=== PATIENT | male | born 1980 | race Caucasian/White ===

== ENCOUNTER 2019-08-04 16:25 | Emergency (ER) | payer SELFPAY ==
--- NOTE | 2019-08-04 18:35 | EDM.PDOC ---
ED HPI GENERAL MEDICAL PROBLEM - General Chief Complaint: Skin Complaint Stated Complaint: RIGHT INDEX FINGER INFECTION Time Seen by Provider: 08/04/19 18:20 Source of Information: Reports: Patient History Limitations: Reports: No Limitations - History of Present Illness INITIAL COMMENTS - FREE TEXT/NARRATIVE: HISTORY AND PHYSICAL: History of present illness: Patient is a 39-year-old male who presents to the emergency room with complaints of right index "finger infection". He states several days ago he noticed some localized swelling at the PIP joint of the right index finger which has progressively gotten larger in size and feels fluctuant. Area is tender to touch and he has pain with extending and flexing of the hand. Patient denies any fever, chills, headache, change in vision, syncope or near syncope. Denies any chest pain, back pain, shortness of breath or cough. Denies any abdominal pain, nausea, vomiting, diarrhea, constipation or dysuria. Has not noted any blood in urine or stool. Patient has been eating and drinking appropriately. Review of systems: As per history of present illness and below otherwise all systems reviewed and negative. Past medical history: As per history of present illness and as reviewed below otherwise noncontributory. Surgical history: As per history of present illness and as reviewed below otherwise noncontributory. Social history: See social history for further information Family history: As per history of present illness and as reviewed below otherwise noncontributory. Physical exam: General: Well-developed and well-nourished 39-year-old male. Alert and oriented. Nontoxic-appearing and in no acute distress. HEENT: Atraumatic, normocephalic, pupils equal and reactive bilaterally, negative for conjunctival pallor or scleral icterus, mucous membranes moist, TMs normal bilaterally, throat clear, neck supple, nontender, trachea midline. No drooling or trismus noted. No meningeal signs. No hot potato voice noted. Lungs: Clear to auscultation, breath sounds equal bilaterally, chest nontender. Heart: S1S2, regular rate and rhythm without overt murmur Abdomen: Soft, nondistended, nontender. Negative for masses or hepatosplenomegaly. Negative for costovertebral tenderness. Skin: Localized soft tissue swelling noted to the anterior MIP joint of the right index finger. Area is fluctuant and tender to palpation. Remaining skin is intact, warm, dry. No lesions or rashes noted. Extremities: Atraumatic, moves all extremities per self without difficulty or deficits, see SKIN for details. Neurovascular unremarkable. Neuro: Awake, alert, oriented. Cranial nerves II through XII unremarkable. Cerebellum unremarkable. Motor and sensory unremarkable throughout. Exam nonfocal. Notes: (Please note that there was a mistaken triage/initial vital signs that the triage nurse put on patients chart. See nursing note for details.) Patient's initial vital signs are within normal limits. Patient does have soft tissue swelling at the MIP joint of the right index finger which is concerning for possible infected joint. X-ray shows diffuse soft tissue swelling. No findings of osteomyelitis. No bony abnormalities are noted. Patient does have history of gout although this appears semi-fluctuant like it may need drainage. I did talk with Dr. English, orthopedic on-call and he would prefer this patient follow-up with a hand surgeon. Dr. Quiñones, hand surgeon at [facility] in [place], was consulted. We discussed gout versus infected joint. Patient does not appear toxic, and he does not need overnight admission. This conversation was shared with the patient. I will start him on antibiotics and give him pain medication. Patient is to call Dr. Quiñones office at 8 AM in the morning to set up this follow-up appointment, which Dr. Quiñones states he will see him tomorrow morning or late afternoon. We did discuss signs and symptoms that would prompt the patient to return to the emergency room. Supportive care measures were reviewed and discussed. Voices understanding and is agreeable to plan of care. Denies any further questions or concerns at this time. Diagnostics: Finger X-ray, CBC, CMP, BC x 2 Therapeutics: None Prescription: Madison, Bactrim Impression: Joint infection vs gout Plan: 1. Please call Dr Quiñones office tomorrow morning at 8am. They will give you an appointment time for follow up that day. 2. Take the medications as prescribed. 3. Return to the ED as needed and as discussed Definitive disposition and diagnosis as appropriate pending reevaluation and review of above. Right Finger-Index Pain Score (Numeric/FACES): 8 - Related Data Allergies Allergy/AdvReac Type Severity Reaction Status Date / Time No Known Allergies Allergy Verified 08/04/19 17:15 Home Meds: Home Meds Acetaminophen/HYDROcodone [Madison 325-5 MG] 1 dose PO Q4H #20 tablet 08/04/19 [Rx ] Sulfamethoxazole/Trimethoprim [Bactrim Ds Tablet] 1 each PO BID 10 Days #20 tablet 08/04/19 [Rx] Past Medical History - Infectious Disease History Infectious Disease History: Reports: None Social & Family History - Family History Family Medical History: Noncontributory - Tobacco Use Smoking Status *Q: Never Smoker Used Tobacco, but Quit: Yes Month/Year Tobacco Last Used: 0000 - Caffeine Use Caffeine Use: Reports: None, Coffee, Energy Drinks, Soda - Recreational Drug Use Recreational Drug Use: No ED ROS GENERAL - Review of Systems Review Of Systems: Comprehensive ROS is negative, except as noted in HPI. ED EXAM, SKIN/RASH Exam: See Below (See dictation) Course - Vital Signs Last Recorded V/S: Last Vital Signs Temp 97.2 F 08/04/19 20:00 Pulse 88 08/04/19 20:00 Resp 18 08/04/19 20:00 BP 110/70 08/04/19 20:00 Pulse Ox 98 08/04/19 20:00 - Orders/Labs/Meds Orders: Active Orders 24 hr Category Date Time Status CULTURE BLOOD [BC] Stat Lab 08/04/19 18:56 Received CULTURE BLOOD [BC] Stat Lab 08/04/19 19:08 Received Blood Culture x2 Reflex Set [OM.PC] Stat Oth 08/04/19 18:35 Ordered Labs: Laboratory Tests 08/04/19 08/04/19 Range/Units 18:56 18:56 WBC 10.47 (4.0-11.0) K/uL RBC 4.28 L (4.50-5.90) M/uL Hgb 12.6 L (13.0-17.0) g/dL Hct 36.4 L (38.0-50.0) % MCV 85.0 (80.0-98.0) fL MCH 29.4 (27.0-32.0) pg MCHC 34.6 (31.0-37.0) g/dL RDW Std Deviation 38.5 (28.0-62.0) fl RDW Coeff of Indu 13 (11.0-15.0) % Plt Count 419 H (150-400) K/uL MPV 9.60 (7.40-12.00) fL Neut % (Auto) 58.7 (48.0-80.0) % Lymph % (Auto) 31.2 (16.0-40.0) % Stanley % (Auto) 7.5 (0.0-15.0) % Eos % (Auto) 2.4 (0.0-7.0) % Baso % (Auto) 0.2 (0.0-1.5) % Neut # (Auto) 6.1 H (1.4-5.7) K/uL Lymph # (Auto) 3.3 H (0.6-2.4) K/uL Stanley # (Auto) 0.8 (0.0-0.8) K/uL Eos # (Auto) 0.3 (0.0-0.7) K/uL Baso # (Auto) 0.0 (0.0-0.1) K/uL Nucleated RBC % 0.0 /100WBC Nucleated RBCs # 0 K/uL Sodium 138 (136-148) mmol/L Potassium 4.3 (3.5-5.1) mmol/L Chloride 100 (98-107) mmol/L Carbon Dioxide 25.9 (21.0-32.0) mmol/L BUN 18 (7.0-18.0) mg/dL Creatinine 0.9 (0.8-1.3) mg/dL Est Cr Clr Drug Dosing 118.53 mL/min Estimated GFR (MDRD) > 60.0 ml/min Glucose 89 (74-106) mg/dL Calcium 9.6 (8.5-10.1) mg/dL Total Bilirubin 0.2 (0.2-1.0) mg/dL AST 23 (15-37) IU/L ALT 34 (14-63) IU/L Alkaline Phosphatase 106 (46-116) U/L Total Protein 9.0 H (6.4-8.2) g/dL Albumin 3.7 (3.4-5.0) g/dL Globulin 5.3 H (2.6-4.0) g/dL Albumin/Globulin Ratio 0.7 L (0.9-1.6) Departure - Departure Time of Disposition: 19:56 Disposition: Home, Self-Care 01 Clinical Impression: Infected joint of finger - Discharge Information Prescriptions: Acetaminophen/HYDROcodone [Madison 325-5 MG] 1 dose PO Q4H #20 tablet Sulfamethoxazole/Trimethoprim [Bactrim Ds Tablet] 1 each PO BID 10 Days #20 tablet Instructions: Cellulitis, Adult, [id number] Referrals: PCP,None [Primary Care Provider] - Forms: ED Department Discharge Additional Instructions: The following information is given to patients seen in the emergency department who are being discharged to home. This information is to outline your options for follow-up care. We provide all patients seen in our emergency department with a follow-up referral. The need for follow-up, as well as the timing and circumstances, are variable depending upon the specifics of your emergency department visit. If you don't have a primary care physician on staff, we will provide you with a referral. We always advise you to contact your personal physician following an emergency department visit to inform them of the circumstance of the visit and for follow-up with them and/or the need for any referrals to a consulting specialist. The emergency department will also refer you to a specialist when appropriate. This referral assures that you have the opportunity for follow-up care with a specialist. All of these measure are taken in an effort to provide you with optimal care, which includes your follow-up. Under all circumstances we always encourage you to contact your private physician who remains a resource for coordinating your care. When calling for follow-up care, please make the office aware that this follow-up is from your recent emergency room visit. If for any reason you are refused follow-up, please contact the [facility] Emergency Department at and asked to speak to the emergency department charge nurse. Dr Quiñones, Hand Surgeon [facility] in [place] [address] [address] [facility] [id number] Quiñones office tomorrow morning at 8am. They will give you an appointment time for follow up that day. 2. Take the medications as prescribed. 3. Return to the ED as needed and as discussed Sepsis Event Note - Evaluation Sepsis Screening Result: No Definite Risk - Focused Exam Vital Signs: Vital Signs Temp Pulse Resp BP Pulse Ox 08/04/19 20:00 97.2 F 88 18 110/70 98 08/04/19 17:17 96.9 F 86 17 127/80 99 08/04/19 16:58 98.6 F 122 H 19 108/57 L 94 L Date Exam was Performed: 08/04/19 Time Exam was Performed: 21:06 - My Orders Last 24 Hours: My Active Orders 08/04/19 18:35 Blood Culture x2 Reflex Set [OM.PC] Stat 08/04/19 18:56 CULTURE BLOOD [BC] Stat 08/04/19 19:08 CULTURE BLOOD [BC] Stat - Assessment/Plan Last 24 Hours: My Active Orders 08/04/19 18:35 Blood Culture x2 Reflex Set [OM.PC] Stat 08/04/19 18:56 CULTURE BLOOD [BC] Stat 08/04/19 19:08 CULTURE BLOOD [BC] Stat
--- NOTE | 2019-08-04 19:08 | CR ---
Right 3rd finger: 3 views of the right 3rd finger were obtained. Diffuse soft tissue swelling is noted. No focal erosive change is seen. No fracture or other bony abnormality is seen. Impression: 1. Diffuse soft tissue swelling. 2. No findings of osteomyelitis. No acute bony abnormality is seen. Diagnostic code #3 This report was dictated in [place] Standard Time
[2019-08-04 19:50] LABS: BLOOD UREA NITROGEN,BUN 18 mg/dL (7.0-18.0); CARBON DIOXIDE,CO2 25.9 mmol/L (21.0-32.0); CHLORIDE,CL 100 mmol/L (98-107); GLUCOSE RANDOM 89 mg/dL (74-106); POTASSIUM,K 4.3 mmol/L (3.5-5.1); SODIUM,NA 138 mmol/L (136-148)
== END 2019-08-04 20:00 | disposition home or self-care (01) ==
LOC: MW.ED 16:25
DX: L08.9 Local infection of the skin and subcutaneous tissue, unspecified (principal); Z77.22 Contact with and (suspected) exposure to environmental tobacco smoke (acute) (chronic)
CPT/HCPCS: 36415; 73140-26-F6; 73140-F6; 80053; 85025; 87040; 99283-25